=== PATIENT | female | born 1995 | race Caucasian/White ===

== ENCOUNTER 2018-04-15 14:51 | Emergency (ER) | payer OTHER ==
--- NOTE | 2018-04-15 15:06 | PDOC ---
Rapid Medical Evaluation Chief Complaint: Vaginal Sxs Medical Evaluation: Allergies Allergy/AdvReac Type Severity Reaction Status Date / Time No Known Allergies Allergy Verified 11/20/17 00:42 04/15/18 15:05 I have performed a brief in-person evaluation of this patient. The patient presents with a chief complaint of:vaginal itching no drainage x 3 Pertinent physical exam findings: well apearing I have ordered the following: nothing The patient will proceed to the ED for further evaluation. Discharge Disposition - Diagnosis Vagina itching - Referrals - Patient Instructions - Post Discharge Activity
[2018-04-15 15:07] VITALS: BP 115/68; PULSE 92; TEMP 98.7; BMI 23.8
--- NOTE | 2018-04-15 16:38 | PDOC ---
History of Present Illness - General Chief Complaint: Vaginal Sxs Stated Complaint: PELVIC PAIN Time Seen by Provider: 04/15/18 15:54 History Source: Patient Exam Limitations: No Limitations - History of Present Illness Travel History: No Initial Comments: 04/15/18 16:33 22 year old female with no medial or surgical history presents with vaginal irritation x 3 days. Reports creamy vaginal discharge with no odor.Denies itching just reports irritation Timing/Duration: reports: constant Quality: reports: moderate Pain Radiation: reports: no radiation Activities at Onset: reports: none Treatment Prior to Arrive: improves with: other ( none) Aggravating Factors: improves with: None Alleviating Factors: improves with: None Past History - Travel Traveled outside of the country in the last 30 days: No - Past Medical History Allergies/Adverse Reactions: Allergies Allergy/AdvReac Type Severity Reaction Status Date / Time No Known Allergies Allergy Verified 11/20/17 00:42 Home Medications: Ambulatory Orders metroNIDAZOLE 0.75% VAG. GEL [Metrogel 0.75% *Vaginal Gel* -] 1 applic VG HS 5 Days #1 tube 04/15/18 COPD: No - Suicide/Smoking/Psychosocial Hx Smoking History: Never smoked Have you smoked in the past 12 months: No Information on smoking cessation initiated: No Hx Alcohol Use: No Drug/Substance Use Hx: No Substance Use Type: None Review of Systems - Review of Systems Able to Perform ROS?: Yes Is the patient limited [place] proficient: No Constitutional: No: Chills, Fever HEENTM: No: Nose Pain, Nose Congestion, Throat Swelling Respiratory: No: Cough, Orthopnea, Wheezing Cardiac (ROS): No: Chest Pain ABD/GI: No: Abdominal Distended, Blood Streaked Bowels, Nausea, Poor Appetite : Yes: Burning. No: Flank Pain, Incontinence, Urgency, Testicular Swelling, Testicular Pain Musculoskeletal: No: Gout Integumentary: No: Change in Color, Dryness, Erythema *Physical Exam - Vital Signs Last Vital Signs Temp Pulse Resp BP Pulse Ox 98.7 F 92 H 20 115/68 99 04/15/18 15:03 04/15/18 15:03 04/15/18 15:03 04/15/18 15:03 04/15/18 15:03 - Physical Exam General Appearance: Yes: Nourished HEENT: positive: EOMI, AMY, Pharynx Normal, Scleral Icterus (R) Neck: positive: Supple. negative: Lymphadenopathy (R) Respiratory/Chest: positive: Lungs Clear, Normal Breath Sounds Cardiovascular: positive: Regular Rate, S1, S2 Female Pelvic Exam: positive: normal external exam, cervical os closed, normal adnexa, discharge (creamy yellowish discharge noted in vaginal cavity. ). negative: CMT Gastrointestinal/Abdominal: negative: Tender Extremity: positive: Normal Range of Motion Neurologic: positive: Fully Oriented, Alert Moderate Sedation - Procedure Monitoring Vital Signs: Procedure Monitoring Vital Signs Temperature 98.7 F 04/15/18 15:03 Pulse Rate 92 H 04/15/18 15:03 Respiratory Rate 20 04/15/18 15:03 Blood Pressure 115/68 04/15/18 15:03 O2 Sat by Pulse Oximetry (%) 99 04/15/18 15:03 Medical Decision Making - Medical Decision Making 04/15/18 16:36 22 year old female with no medial or surgical history presents with vaginal irritation x 3 days Plan pelvic exam normal external vagina creamy yellowish discharge in vaginal cavity os closed, no cmt send urine preg, urinaly urine gc/chlamydia, genital culture rx: metrogel *DC/Admit/Observation/Transfer Diagnosis at time of Disposition: Vagina itching Vaginitis Qualifiers: Chronicity: acute Qualified Code(s): N76.0 - Acute vaginitis - Discharge Dispostion Disposition: HOME Condition at time of disposition: Good Decision to Admit order: No - Prescriptions Prescriptions: metroNIDAZOLE 0.75% VAG. GEL [Metrogel 0.75% *Vaginal Gel* -] 1 applic VG HS 5 Days #1 tube - Referrals Schedule a call back: gc/chlamydia - Patient Instructions Printed Discharge Instructions: DI for Vaginal Itching - Post Discharge Activity Forms/Work/School Notes: Back to Work
[2018-04-15 17:24] LABS: URINE APPEARANCE SLCLOUDY; URINE BILIRUBIN NEGATIVE (<2.0 mg/dL); URINE COLOR YELLOW; URINE GLUCOSE (UA) NEGATIVE (NEGATIVE); URINE KETONE NEGATIVE (NEGATIVE); URINE LEUK ESTERASE 1+ (NEGATIVE); URINE NITRITE NEGATIVE (NEGATIVE); URINE PROTEIN NEGATIVE (NEGATIVE); URINE UROBILINOGEN NEGATIVE mg/dL (0.2-1.0)
[2018-04-15 17:27] LABS: EPI CELLS FEW /HPF (FEW); URINE BACTERIA RARE /hpf (NONE SEEN); URINE MUCUS RARE
[2018-04-18] MEDS ORDERED: FLUCONAZOLE 50 MG TABLET PO ONE (12:51)
== END 2018-04-15 17:39 | disposition home or self-care (01) ==
LOC: JERFT 14:51
DX: N76.0 Acute vaginitis (principal)
CPT/HCPCS: 36415; 81003; 81015; 84703; 87070; 87077; 87205; 87491; 87591; 99281-25

== ENCOUNTER 2018-11-02 23:21 | Emergency (ER) | payer OTHER | END 2018-11-03 01:19 | disposition home or self-care (01) | LOC: JER 23:21 | PROC: 3E0333Z Introduction of Anti-inflammatory into Peripheral Vein, Percutaneous Approach (ICD-10-PCS; principal; 2018-11-02) | PROC: 3E033GC Introduction of Other Therapeutic Substance into Peripheral Vein, Percutaneous Approach (ICD-10-PCS; 2018-11-02) | DX: M43.6 Torticollis (principal) ==

== ENCOUNTER 2021-05-04 20:00 | Emergency (ER) | payer OTHER ==
[2021-05-04 20:19] VITALS: BP 125/81; PULSE 93; TEMP 97.8; BMI 23.6
[2021-05-04 21:29] LABS: EPI CELLS 20 /uL (0-25.1); HCG,QUALITATIVE URINE Negative; HYALINE CASTS 1 /uL (0-3.1); PH,URINE 7.5 (5.0-8.0); URINE APPEARANCE CLEAR; URINE BACTERIA 372 /uL (0-1359); URINE BILIRUBIN NEGATIVE (NEGATIVE); URINE COLOR YELLOW; URINE GLUCOSE (UA) NEGATIVE (NEGATIVE); URINE KETONE NEGATIVE (NEGATIVE); URINE LEUK ESTERASE TRACE (NEGATIVE); URINE NITRITE NEGATIVE (NEGATIVE); URINE PROTEIN NEGATIVE (NEGATIVE); URINE RBC 5 /uL (0-23.9); URINE UROBILINOGEN 0.2 mg/dL (0.2-1.0); URINE WBC 33 /uL (0-25.8)
[2021-05-04] MEDS ORDERED: KETOROLAC TROMETHAMINE 15 MG/ML VIAL IM ONE (23:21)
[2021-05-04] MEDS ORDERED: KETOROLAC TROMETHAMINE 30 MG/1 ML VIAL ONE (23:26)
== END 2021-05-04 23:44 | disposition home or self-care (01) ==
LOC: JER 20:00
PROC: 3E0233Z Introduction of Anti-inflammatory into Muscle, Percutaneous Approach (ICD-10-PCS; principal; 2021-05-04)
DX: N39.0 Urinary tract infection, site not specified (principal)
CPT/HCPCS: 76830-TC; 81003; 84703; 99284-25

== ENCOUNTER 2022-02-13 20:46 | Emergency (ER) | payer OTHER ==
[2022-02-13 20:53] VITALS: BP 114/76; PULSE 87; RESP 16; TEMP 98.5; BMI 25.8
[2022-02-13] MEDS ORDERED: KETOROLAC TROMETHAMINE 30 MG/1 ML VIAL IM ONE (23:15)
[2022-02-13 23:32] LABS: HCG,QUALITATIVE URINE Negative
[2022-02-13 23:39] LABS: PH,URINE 5.5 (5.0-8.0); URINE APPEARANCE CLEAR; URINE BILIRUBIN NEGATIVE (NEGATIVE); URINE COLOR YELLOW; URINE GLUCOSE (UA) NEGATIVE (NEGATIVE); URINE KETONE NEGATIVE (NEGATIVE); URINE LEUK ESTERASE NEGATIVE (NEGATIVE); URINE NITRITE NEGATIVE (NEGATIVE); URINE PROTEIN NEGATIVE (NEGATIVE); URINE UROBILINOGEN 0.2 mg/dL (0.2-1.0)
[2022-02-13] MEDS ORDERED: KETOROLAC TROMETHAMINE 30 MG/1 ML VIAL ONE (23:52)
[2022-02-14] MEDS ORDERED: METHOCARBAMOL 500 MG TABLET PO ONE (00:06)
[2022-02-14] MEDS ORDERED: METHOCARBAMOL 500 MG TABLET ONE (00:10)
== END 2022-02-14 00:16 | disposition home or self-care (01) ==
LOC: JERFT 20:46
PROC: 3E0233Z Introduction of Anti-inflammatory into Muscle, Percutaneous Approach (ICD-10-PCS; principal; 2022-02-13)
DX: M54.50 Low back pain, unspecified (principal)
CPT/HCPCS: 81003; 84703; 87086; 99284-25

== ENCOUNTER 2023-04-04 20:26 | Emergency (ER) | payer OTHER ==
[2023-04-04 20:35] VITALS: BP 136/90; PULSE 68; RESP 20; TEMP 98.3; BMI 25.2
[2023-04-04] MEDS ORDERED: METOCLOPRAMIDE HCL 10 MG TABLET (FP) PO ONE ×2 (21:14→21:52)
[2023-04-04] MEDS ORDERED: KETOROLAC TROMETHAMINE 30 MG/1 ML VIAL IM ONE (21:14)
[2023-04-04] MEDS ORDERED: METHOCARBAMOL 750 MG TABLET PO ONE (21:14)
[2023-04-04] MEDS ORDERED: KETOROLAC TROMETHAMINE 30 MG/1 ML VIAL ONE (21:52)
[2023-04-04] MEDS ORDERED: METHOCARBAMOL 500 MG TABLET ONE (21:52)
== END 2023-04-04 22:05 | disposition home or self-care (01) ==
LOC: JER 20:26
PROC: 3E0233Z Introduction of Anti-inflammatory into Muscle, Percutaneous Approach (ICD-10-PCS; principal; 2023-04-04)
DX: G44.209 Tension-type headache, unspecified, not intractable (principal); M54.6 Pain in thoracic spine; M62.838 Other muscle spasm; M54.2 Cervicalgia; M25.511 Pain in right shoulder; M25.512 Pain in left shoulder; Z20.822 Contact with and (suspected) exposure to COVID-19
CPT/HCPCS: 0241U-QW; 99284-25